=== PATIENT | female | born 1935 ===

== ENCOUNTER 2018-11-22 20:58 | Inpatient (IN) ==
[2018-11-22] MEDS ORDERED: SALINE LOCK IV FLUID XX ONE (23:18)
[2018-11-22] MEDS ORDERED: ZOFRAN IV PRN (23:18)
[2018-11-22] MEDS ORDERED: NITROGLYCERIN SL PRN (23:18)
[2018-11-22] MEDS ORDERED: TYLENOL PO PRN (23:18)
[2018-11-22 23:47] LABS: BASO# 0.03 X1000 (0.0-0.2); BASO% 0.3 % (0.0-0.8); EOS% 2.9 % (0.0-10.0); HEMATOCRIT 27.4 % (37.0-47.0); HEMOGLOBIN 8.9 g/dL (12.0-16.0); IMM GRAN# 0.02 X1000 (0.0-0.04); IMM GRAN% 0.2 % (0.0-0.5); LYMPH# 2.56 X1000 (1.2-3.4); LYMPH% 24.7 % (20.5-51.1); MCH 25.9 PG (27-31); MCHC 32.5 g/dL (33-37); MCV 79.9 FL (81-99); MONO# 0.84 X1000 (0.11-0.59); MONO% 8.1 % (1.7-9.3); MPV 8.9 FL (7.4-10.4); NEUT% 63.8 % (42.2-75.2); PLT 359 X1000 (130-400); RBC 3.43 XMIL (4.2-5.4); RDW 16.1 % (11.5-14.5); WBC 10.35 X1000 (4.8-10.8)
[2018-11-23 00:37] LABS: ALB/GLOB RATIO 1.1; ALBUMIN 3.5 g/dL (3.5-5.0); CALCIUM 8.6 mg/dL (8.8-10.2); CREATININE 0.9 mg/dL (0.5-0.9); TOTAL BILIRUBIN 0.17 mg/dL (0.20-1.00); TOTAL PROTEIN 6.8 g/dL (6.3-8.3)
--- NOTE | 2018-11-23 01:40 | EKG Report ---
Test Performed on : 11/23/2018 01:31:12 AM Test Reason : cp Blood Pressure : / mmHG Vent. Rate : 061 BPM Atrial Rate : 061 BPM P-R Int : 214 ms QRS Dur : 130 ms QT Int : 488 ms P-R-T Axes : 035 -20 143 degrees QTc Int : 491 ms Sinus rhythm. with 1st degree AV block. Left ventricular hypertrophy with QRS widening and repolarization abnormality Cannot rule out Septal infarct , age undetermined Abnormal ECG No previous ECGs available Confirmed by Anastacio Galvez MD ([id number]) on 11/25/2018 6:54:08 AM
[2018-11-23] MEDS ORDERED: KLOR-CON PO ONE (02:30)
[2018-11-23] MEDS: PRILOSEC PO SCH (06:20)
--- NOTE | 2018-11-23 07:15 | HISTORY AND PHYSICAL ---
CHIEF COMPLAINT: Weakness and chest pressure. HISTORY OF PRESENT ILLNESS: Ms. Segovia is an 83-year-old female who was transferred in from [facility] related to having previous cardiac stenting. On initial workup, her troponin was within normal limits but they were concerned about not having Interventional Cardiology so they transferred her here. She will be placed on the medical floor with Cardiology consultation for further evaluation and treatment. PAST MEDICAL HISTORY: 1. Atrial fibrillation with anticoagulation. 2. Coronary artery disease status post stenting. 3. Iron-deficiency anemia status post iron infusions. 4. Hypertension. 5. Hyperlipidemia. PREVIOUS SURGICAL HISTORY: 1. Bilateral breast biopsies. 2. Cholecystectomy. SOCIAL HISTORY: Lives alone. No tobacco, alcohol or illicit drugs. FAMILY HISTORY: Positive for diabetes mellitus in a sibling. States she does not have a family history of coronary artery disease or CVA. ALLERGIES: BONIFACIO inhibitors causing angioedema. HOME MEDICATIONS: I know that she is on sotalol. Dosing is unknown. She also takes a blood thinner. Nursing is working on reconciling home medications at this time. Those will be restarted when they are placed on the computer. REVIEW OF SYSTEMS: Fourteen point review of systems conducted with the patient. She complained of chest pressure and weakness. She stated that it was not over pain, it did not radiate into her neck, back or jaw. She felt lethargic or malaise for several days. She did not have nausea, vomiting or diaphoresis with any of the episodes. Other pertinent positives listed above in the HPI. All other systems reviewed and found to be negative. PHYSICAL EXAMINATION: VITAL SIGNS: Temp 97.6 degrees, pulse 60, respirations 18, blood pressure 132/45, oxygen saturation 100% on room air. GENERAL: Very pleasant 83-year-old female, alert and oriented x3. Answers all questions appropriately. Family is at the bedside and very attentive. HEENT: Head is atraumatic, normocephalic. Pupils equal, round and react to light. Extraocular eye movements intact. Sclerae anicteric. Conjunctivae mildly pale. Oral mucosa is moist. NECK: Supple. No JVD. No thyromegaly. Trachea is midline. No cervical lymphadenopathy. CARDIAC: S1, S2 appreciated. No murmurs, gallops, rubs. Patient is irregularly irregular. LUNGS: Clear to auscultation bilaterally. No rhonchi, wheezes, rales. Symmetrical rise and fall of respirations. ABDOMEN: Soft, nondistended, nontender. Bowel sounds present in all 4 quadrants. Normoactive. No pulsatile masses. No organomegaly. EXTREMITIES: No cyanosis, clubbing or edema. 2+ pedal pulses bilaterally. GENITOURINARY: No bladder distention. Patient voids. Otherwise deferred. NEUROLOGICAL: Alert and oriented x3. No focal motor deficits. Otherwise nonfocal examination. LABORATORY DATA: Is from 1438. New laboratory data is being collected as we speak. This was drawn at [facility]. WBC 11, hemoglobin 9.7, hematocrit 29.7, platelet count 385,000. Sodium 133, potassium 3.6, chloride 94, carbon dioxide 28, BUN 29, creatinine 1, glucose 72. Troponins normal x2 sets. INR 1.22, PT 15.6. Chest x-ray: No effusion, no infiltrates, no edema. ASSESSMENT AND PLAN: 1. Chest pain, rule out acute myocardial infarction. Patient has had stenting in the past. Was originally going to order a stress test for tomorrow morning; however, son stated they had spoken with her primary care provider who was interested in getting her here to have a possible cardiac catheterization. We will consult Dr. Myers with Cardiology and defer further testing to him. NPO after midnight. Trend cardiac enzymes, direct lipid profile. 2. Iron-deficiency anemia. Check iron indices and evaluate. Patient was anemic on initial labs. 3. Hypertension. Continue home medication. 4. Hyperlipidemia. Continue statin. 5. Atrial fibrillation. Continue sotalol and anticoagulant once these are placed in the system. Further recommendations per the patient's clinical course. Dictated by SHARON See for Jad Drake MD Addendum: Patient seen and examined by myself. Agree with SHARON note. It reflects my assessment and plan. Patient is being admitted to hospital for chest pain. Workup in progress including troponins and echocardiogram. Will consult Cardiology as well. cc: SHARON See MD [facility]
[2018-11-23 08:53] LABS: IRON SATURATION 9 %; TIBC 343 ug/dL; TOTAL IRON 31 ug/dL (49-151); UNBOUND IRON 312 ug/dL (112-346)
[2018-11-23] MEDS: HYGROTON PO SCH (09:03)
[2018-11-23] MEDS: NORVASC PO SCH (09:03)
[2018-11-23] MEDS: ELIQUIS PO SCH (09:03)
[2018-11-23] MEDS: BETAPACE PO SCH ×2 (09:03→20:00)
[2018-11-23] MEDS: LIPITOR PO SCH (09:03)
[2018-11-23 09:13] LABS: FERRITIN 35 ng/mL (13-150)
[2018-11-23] MEDS ORDERED: LEXISCAN ONE (12:22)
[2018-11-23] MEDS ORDERED: AMINOPHYLLINE ONE (12:56)
[2018-11-23] MEDS ORDERED: MAGNESIUM SULFATE 2 GM/S.W.I. 2 GM/50 ML IVPB IV ONE (17:00)
[2018-11-23] MEDS ORDERED: VENOFER 200 MG in NS 100 ML IV ONE (18:00)
[2018-11-23] MEDS ORDERED: NS 500 ML ONE (18:36)
--- NOTE | 2018-11-23 19:47 | PROGRESS NOTE ---
DATE: 11/23/2018 SUBJECTIVE: This morning, Ms. Segovia refers to be doing well. She refers to have had some epigastric discomfort and pressure. She also has a history of myocardial infarction almost a year ago, status post stent. Follows up with a radio installer in [place]. OBJECTIVE: Vital Signs: Blood pressure is 128/50, pulse of 54, respiration is 18, temperature is 98 degrees. General: 83-year-old female. She is in bed. No distress. HEENT: Mucosa is pink and moist. Anicteric. Acyanotic. Neck: Supple. Chest: Clear to auscultation. Cardiovascular: Regular rate and rhythm. Abdomen: Soft. Extremities: No pedal edema. NURSE LEADER: Patient is awake, alert, and oriented. There is no focal neurological deficit. LABORATORY DATA: None for today except for iron studies, which are remarkably deficient. Troponins have been trending at 3 times which are all negative. ASSESSMENT: 1. Atypical chest pain. I understand the stress test did not show any ischemic changes. There is, however, area of scar. We are still pending the official report. 2. Ischemic heart disease, with history of heart attack before, status post stent. The patient continues to be on medications. 3. Atrial fibrillation, currently rate controlled. Patient is on sotalol and Eliquis for stroke prophylaxis. 4. Diabetes mellitus. We will continue with insulin regimen from home. Patient is on Lantus and metformin. Metformin will be held during the hospital course. 5. Iron deficiency anemia. We are going to infuse a unit of iron. Obviously, Ms. Segovia is on antiplatelet and anticoagulant, and has a very high risk of possible gastrointestinal bleed; however, at this moment, she is not having any obvious gastrointestinal hemorrhaging, so I have advised her and her daughter, who was at the bedside at the time, to follow up with a GI physician. Ms. Segovia used to follow up with Dr. Crane and I have encouraged her to continue. cc: Reyes Garcia MD
--- NOTE | 2018-11-23 20:57 | CARDIOLOGY CONSULTATION ---
DATE: 11/23/2018 IMPRESSION: 1. Episode of chest discomfort with mixed features for myocardial ischemia. Overall presentation atypical in that patient's chest discomfort lasted for more than an hour and serial troponins are normal. However, patient does relate discomfort is similar to what she had last year before having coronary angioplasty/stent, although recurrent discomfort not very severe. Stress sestamibi study underway. 2. Paroxysmal atrial fibrillation suppressed with Betapace, low dose. Patient also anticoagulated with Eliquis. 3. Hypertension. 4. Hyperlipidemia. RECOMMENDATIONS: 1. Agree with plans to pursue Lexiscan sestamibi study given negative cardiac enzymes. 2. Follow up echocardiography. 3. If underlying myocardial ischemia suggested, favor pursuit of coronary angiography and possible coronary angioplasty/stenting. 4. If Lexiscan sestamibi study negative, recommend continued medical management, but would reconsider cardiac catheterization/coronary angiography in the event of persistent and recurrent chest discomfort of this nature. HISTORY: This 83-year-old, white female, with past history of previous coronary angioplasty/stenting of left anterior descending coronary last year at [facility], hypertension, hyperlipidemia, and iron deficiency anemia, as well as paroxysmal atrial fibrillation, was admitted last night on transfer from [facility] [place], [place], for further management of chest pain. She reports developing [id number] chest pressure yesterday while at rest. Discomfort was rather persistent, lasting more than an hour. Discomfort is characterized as being somewhat similar to what she had prior to her coronary angioplasty/stent procedure last year, although current symptoms are not as severe. She was seen in the emergency room and subsequently transferred here for further management. Her chest symptoms have resolved and not recurred. Serial cardiac enzymes are normal. PAST MEDICAL HISTORY: 1. Atherosclerotic coronary disease. Patient is status post coronary angioplasty/stenting with drug-eluting stent to mid left anterior descending coronary 1 year ago. 2. Paroxysmal atrial fibrillation suppressed with low-dose Betapace. 3. Iron-deficiency anemia. Patient receives periodic iron infusions. 4. Hypertension. 5. Hyperlipidemia. 6. History of pancreatitis in the past. PAST SURGICAL HISTORY: Includes bilateral breast biopsies, cholecystectomy. ALLERGIES: She is allergic or intolerant to angiotensin converting enzyme inhibitors, which cause angioedema. MEDICATIONS PRIOR TO ADMISSION: As listed. SOCIAL HISTORY: She lives independently at home. She does not smoke nor use alcohol. FAMILY HISTORY: Negative for premature coronary disease. REVIEW OF SYSTEMS: Pulmonary: Negative. Gastrointestinal: Negative. Constitutional: Negative. Remaining review of systems negative/noncontributory with 14 total systems reviewed. PHYSICAL EXAMINATION: This is a pleasant, elderly white female, in no distress. Blood pressure 134/44, heart rate 59, oxygen saturation 100% on room air.HEENT: Extraocular movements appear intact. Mucous membranes are moist. Neck: Supple without jugular venous distention. There are no carotid bruits. Chest: Clear to auscultation bilaterally. Cardiac: Regular rate and rhythm without appreciable murmur or gallop. Abdomen: Soft. Bowel sounds are normal. Extremities: Without edema. Neurologic: Reveals her to be alert and fully oriented. Speech is fluent. She moves all 4 extremities equally well. Skin: Warm and dry. Psychiatric: Reveals her mood to be appropriate. DIAGNOSTIC DATA: A 12-lead EKG demonstrates sinus rhythm with first degree AV block, and left ventricular with repolarization abnormality and nonspecific interventricular conduction delay. LABORATORY DATA: Includes white blood cell count 10.35, hematocrit 27.4, hemoglobin 8.9, platelet count 359,000. Sodium 132, potassium 3.0, chloride 92, carbon dioxide 26, BUN 24, creatinine 0.9, glucose 153. Serum iron 31, TIBC 343, percent saturation iron 9%, ferritin 35. Initial troponin T less than 0.01. Followup troponin T less than 0.01. CPK 34, followup CPK 36. Triglycerides 80, total cholesterol 85, LDL cholesterol 41, HDL cholesterol 37. cc: Luis Main MD
[2018-11-24] MEDS: PRILOSEC PO SCH ×2 (05:45→06:07)
[2018-11-24 07:37] LABS: HEMATOCRIT 29.2 % (37.0-47.0); HEMOGLOBIN 9.5 g/dL (12.0-16.0); MCH 26.7 PG (27-31); MCHC 32.5 g/dL (33-37); MPV 9.2 FL (7.4-10.4); RBC 3.56 XMIL (4.2-5.4); RDW 16.3 % (11.5-14.5); WBC 6.74 X1000 (4.8-10.8)
[2018-11-24] MEDS: LIPITOR PO SCH (07:59)
[2018-11-24] MEDS: BETAPACE PO SCH (07:59)
[2018-11-24] MEDS: ELIQUIS PO SCH (07:59)
[2018-11-24] MEDS: HYGROTON PO SCH (07:59)
[2018-11-24] MEDS: NORVASC PO SCH (07:59)
[2018-11-24 08:06] LABS: AGAP 13; ALBUMIN 3.7 g/dL (3.5-5.0); BUN 14 mg/dL (8-22); CALCIUM 9.2 mg/dL (8.8-10.2); CHLORIDE 99 mmol/L (98-107); COSMO 276; CREATININE 0.9 mg/dL (0.5-0.9); GLUCOSE 123 mg/dL (70-104); LIPASE 34 U/L (13-60); PHOSPHORUS 3.1 mg/dL (2.7-4.5); POTASSIUM 3.7 mmol/L (3.5-5.1); SODIUM 137 mmol/L (136-145); TCO2 25 mmol/L (25-35)
--- NOTE | 2018-11-24 08:14 | ECHO REPORT ---
ORDER DATE: 11/23/2018 MEASUREMENTS: Septal thickness 1.3, left ventricular internal diameter in diastole 5.2, posterior wall thickness 1.2, aortic root 3.1, left atrium 5.0. SUMMARY: 1. Adequate quality study. Intravenous echocontrast agent Optison was utilized to enhance endocardial definition. 2. Aortic valve is trileaflet and demonstrates sclerotic change but adequate opening on 2- dimensional images. Peak gradient across the aortic valve is 11 mmHg. Mitral, tricuspid, and pulmonic valves are without evidence of structural abnormality, with trace mitral regurgitation and mild tricuspid regurgitation. There is mild pulmonic insufficiency. The estimated systolic PA pressure by Doppler is 35 to 40 mmHg, suggesting very mild pulmonary hypertension. The aortic root is normal in size. 3. Normal left ventricular chamber size with mild concentric left ventricular hypertrophy demonstrated. The estimated left ventricular ejection fraction appears to be at least 65%. No regional wall motion abnormalities are evident. Doppler suggests grade 1 left ventricular diastolic dysfunction. The left atrium is moderately enlarged. The right atrium and right ventricle are normal in size with grossly preserved right ventricular systolic function. 4. No pericardial effusion. 5. Appearance of inferior vena cava suggests normal central venous pressure. CONCLUSIONS: 1. Aortic valve sclerosis without stenosis. 2. Mild tricuspid regurgitation with very mild pulmonary hypertension by Doppler. 3. Mild concentric left ventricular hypertrophy with estimated left ventricular ejection fraction of at least 65%. 4. Grade 1 left ventricular diastolic dysfunction is suggested. 5. Moderate left atrial enlargement. cc: MD Jad Alejandra MD
--- NOTE | 2018-11-24 10:02 | Diag Imaging Result Document ---
PROCEDURE NAME: MYOCARDIAL PERF SCAN, STR/REST - 11/23/2018 REFERRING PHYSICIAN: PROCEDURE: Lexiscan Cardiolite Stress test. SUMMARY: 1. Lexiscan was infused per standard protocol. There was no chest pain. 2. Stress electrocardiogram was negative for ischemia. 3. The patient had nausea and vomiting requiring aminophylline 125 mg given intravenously, which relieved her symptoms. 4. Cardiolite was injected. 5. Gated SPECT images were obtained in standard views. 6. 10.9 mCi of Cardiolite was injected for the rest phase, 31.2 mCi of Cardiolite was injected for the stress phase. 7. Images were obtained in standard views. 8. Images revealed normal left ventricular cavity size. 9. There is severe grade, large-sized, fixed defect in the left ventricular apex diagnostic of infarct or scar. 10There is a left ventricular apex, and hypokinesis was noted. There is no evidence of ischemia. Rest of the myocardium had normal tracer uptake. CONCLUSIONS: 1. No chest pain. 2. Negative Lexiscan stress electrocardiogram. 3. Myocardial perfusion images revealed severe grade, large-sized, fixed defect in the left ventricular apex diagnostic of infarct or scar. 4. Left ventricular ejection fraction of 72%. There is apical hypokinesis. There is no evidence of ischemia. cc: MD Radha Mercado CRNP
[2018-11-24 12:05] VITALS: BP 141/49
--- NOTE | 2018-11-24 18:00 | CARDIOLOGY PROGRESS NOTE ---
DATE: 11/24/2018 SUBJECTIVE: Patient continues without chest discomfort or shortness of breath on room air. OBJECTIVE: Blood pressure 141/49, heart rate 64, oxygen saturation 100% on room air. There is no significant jugular venous distention.Chest: Clear to auscultation. Cardiac: Regular rate and rhythm without appreciable murmur or gallop. There is no evidence of peripheral edema. LABORATORY AND DIAGNOSTIC DATA: Includes a white blood cell count of 6.74, hematocrit 29.2, hemoglobin 9.5, platelet count 347,000. Sodium 137, potassium 3.7, chloride 99, carbon dioxide 25, BUN 14, creatinine 0.9, glucose 123 Lexiscan myocardial perfusion images reviewed. There is a [id number] sized fixed defect in the apex with corresponding preserved regional wall motion most consistent with soft tissue attenuation artifact. There is no significant reversibility and no scintigraphic evidence of inducible myocardial ischemia. Normal left ventricular ejection fraction demonstrated. Echocardiography also reviewed and demonstrates normal left ventricular ejection fraction and no regional wall motion abnormalities. Specifically, the apex appears to contract normally. IMPRESSION: 1. Recent chest pain, [*]atypical. Serial cardiac enzymes negative. Lexiscan sestamibi study negative for evidence of inducible myocardial ischemia. Fixed apical defect likely breast artifact. Left ventricular ejection fraction normal. 2. Atherosclerotic coronary disease with previous angioplasty/stenting of the mid left anterior descending coronary about a year ago. 3. Paroxysmal atrial fibrillation, suppressed with low-dose beta fawad. 4. Iron deficiency. 5. Hypertension. 6. Hyperlipidemia. RECOMMENDATIONS: 1. Continue medical management of patient's coronary atherosclerosis. 2. Continue Betapace and Eliquis for paroxysmal atrial fibrillation. 3. Reasonable for patient to be discharged today. She should have Cardiology followup in approximately 3 to 4 weeks. cc: Luis Main MD
--- NOTE | 2018-11-25 14:26 | DISCHARGE SUMMARY ---
ADMISSION DATE: 11/22/2018 DISCHARGE DATE: 11/24/2018 DISPOSITION: Home. FOLLOW-UP: The patient's PCP, Dr. Ollie De Dios, and her meat counter worker. CONSULTATION DURING THIS ADMISSION: None. INVASIVE PROCEDURES DONE DURING THIS ADMISSION: None. IMAGING STUDIES OF SIGNIFICANCE: A stress test was negative for any ischemia; however, there was a large sized fixed defect in the left ventricle apex diagnostic of infarct or scar. ADMISSION DIAGNOSES: 1. Chest pain, rule out myocardial infarction. 2. Iron-deficiency anemia. 3. Hypertension. 4. Dyslipidemia. 5. History of atrial fibrillation. DIAGNOSES AT THE TIME OF DISCHARGE: 1. Atypical chest pain with stress test showed no evidence of reversible disease. 2. Ischemic heart disease. Stress test shows scar/infarct in the left inferior left ventricle. 3. Atrial fibrillation currently rate controlled. 4. Diabetes mellitus. 5. Iron-deficiency anemia. DISCHARGE MEDICATIONS: 1. Sotalol 40 mg b.i.d. 2. Eliquis 5 mg daily. 3. Chlorthalidone 25 mg daily. 4. Atorvastatin 40 mg p.o. daily. 5. Metformin 850 p.o. daily. 6. Amlodipine 5 mg p.o. daily. 7. Insulin glargine 25 units daily. 8. Omeprazole 20 mg p.o. daily. PRESENTING COMPLAINT: Weakness and chest pressure. HISTORY OF PRESENTING COMPLAINT: Ms. Segovia is an 83-year-old female who has a history of multiple comorbidities including coronary artery disease, and hypertension. She came to the emergency department because of pressure in her chest. Because of her comorbidities, the decision was made to admit her for cardiac risk stratification. Ms. Segovia was admitted to the medical floor. She was evaluated by Cardiology (Dr. Main). An echocardiogram was done which showed an ejection fraction of 65%. A stress test did not show any reversible defect. Her chest pressure got resolved during the hospital course. She normally follows up with a meat counter worker in [place]. This morning she refers to do a lot better. Vitals are stable blood pressure is 141/49, pulse of 64, respiration is 19, temperature 97.4 degrees. We think she is in stable condition for discharge. Of note, Ms. Segovia is found to have an iron-deficiency anemia; however, she is not showing any acute GI bleed. She is on Eliquis. We have advised that she follows up with GI as well as with her meat counter worker to evaluate for possible anticoagulation-related GI bleed. TIME SPENT: Time spent for discharge is 35 minutes. cc: Reyes Garcia MD
== END 2018-11-24 15:02 | disposition home or self-care (01) | DRG 313 ==
LOC: SUATTDRO 20:58 → 3N 20:58
PROVIDERS: ATTEND Internal Medicine